=== PATIENT | male | born 2000 | race Caucasian/White ===

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

== ENCOUNTER 2023-03-26 08:09 | Emergency (ER) | payer SELFPAY ==
[~2023-03-26] VITALS: Ht 185.4 cm; Wt 122.7 kg
[2023-03-26 08:17] VITALS: TEMP 98.7
[2023-03-26 08:45] LABS: STREP A NEGATIVE
[2023-03-26] MEDS ORDERED: Acetaminophen 500 MG TAB PO ONE (08:45)
[2023-03-26 09:12] VITALS: BP 139/87; PULSE 85
== END 2023-03-26 09:12 | disposition home or self-care (01) ==
LOC: COL.ER 08:09
PROVIDERS: Emergency Medicine
DX: J02.9 Acute pharyngitis, unspecified (principal)